=== PATIENT | female | born 1960 | race Caucasian/White ===

== ENCOUNTER → 2023-07-21 14:08 | Outpatient (CLI) | payer BC, SELFPAY ==
--- NOTE | ~2023-07-21 | US_ITS ---
EXAMINATION: US thyroid DATE: 07/21/2023 14:25 INDICATION: Nontoxic multinodular goiter. TECHNIQUE: Multiple ultrasound images of the thyroid were obtained. COMPARISON: None. FINDINGS: The right thyroid lobe measures 3.7 x 1.6 x 1.4 cm. The left thyroid lobe measures 3.3 x 1.0 x 1.0 c m. In the left thyroid lobe, there is a 10 mm, solid, isoechoic, wider than tall nodule with ill-def ined margin without echogenic foci (TI-RADS TR3). IMPRESSION: 1. Small thyroid nodule, likely not clinically significant. No follow-up is needed. Reviewed, dictated and finalized at location E. IMPRESSION: 1. Small thyroid nodule, likely not clinically significant. No follow-up is nee ded.
== END ==
PROVIDERS: PCP Physician Assistant Medical; Visit Provider Physician Assistant Medical
DX: E04.2 Nontoxic multinodular goiter (principal); E03.9 Hypothyroidism, unspecified
CPT/HCPCS: 76536

== ENCOUNTER 2024-02-06 08:17 | Outpatient (CLI) | payer BC, SELFPAY ==
--- NOTE | ~2024-02-06 | MR_ITS ---
MRI of the lumbar spine Clinical History: Pain Technique: Axial T2-weighted images, and sagittal T1-weighted, T2-weighted, and T2 fat-sat images wer e acquired. Findings: There is no fracture or subluxation of the lumbar spine. Vertebral bodies maintain normal h eight and alignment. Several scattered Schmorl's nodes are present, small in size. No suspicious bone marrow signal abnormality seen. At L1-L2, there is moderate degenerative disc narrowing. There is minimal disc bulge and mild facet a rthropathy. No central canal stenosis or neural foraminal narrowing. At L2-L3, there is central disc protrusion with underlying mild disc bulge. There is mild facet arthr opathy. No central canal stenosis or neural foraminal narrowing. At L3-L4, there is minimal disc bulge with mild facet arthropathy. No central canal stenosis. There i s mild bilateral neural foraminal narrowing. At L4-L5, there is minimal disc bulge and moderate facet arthropathy. No central canal stenosis. Ther e is moderate bilateral neural foraminal narrowing, left worse than right. At L5-S1, there is minimal disc bulge and advanced facet arthropathy. No central canal stenosis. Ther e is moderate to severe left neural foraminal narrowing, and moderate right neural foraminal narrowin g. Paravertebral soft tissues are unremarkable. Impression: [id number] degenerative spondylosis, as above. Reviewed, dictated and finalized at [facility]. Impression: [id number] degenerative spondylosis, as above.
--- NOTE | ~2024-02-06 | MR_ITS ---
EXAMINATION: MR hip LT wo con DATE: 02/06/2024 11:04 INDICATION: Left hip pain TECHNIQUE: Magnetic resonance imaging (MRI) of the left hip was performed without intravenous contra st. Sequences included full-field axial PD-weighted FS FSE and T1-weighted FSE, coronal of the pelvis with PD-weighted FS FSE, T2-weighted FSE and T1-weighted FSE, small field of view of the left hip w ith axial PD-weighted FS FSE, sagittal PD-weighted FS FSE, coronal PD-weighted FS FSE and coronal T2 weighted FSE. Additional radial T1-weighted FGR oriented orthogonal to the acetabular rim were obtai víctor for evaluation of the labrum. COMPARISON: Left hip radiographs dated 01/14/2024 FINDINGS: Bones/labrum/cartilage: Alignment is normal. No fracture, avascular necrosis or pathologic marrow replacing process. Small T 1 hyperintense hemangioma at L5. Mild nonuniform joint space narrowing at the left hip with mild part ial-thickness cartilage loss without evident chondral surface regularity and without degenerative sub chondral changes. There is focal amorphous mild increased signal at the chondral labral interface at the 12:00 position of the superolateral left acetabular labrum where there is a moderate size margina l osteophyte better appreciated on the prior radiographs. Fluid: Symmetric physiologic amount of fluid within both hip joints. Soft tissues: Normal and symmetric muscle bulk and signal in the pelvis and visualized proximal thighs. The iliopso as, gluteal and proximal hamstring tendons are normal. There are multiple diverticula along the sigmo id and visualized distal descending colon without adjacent inflammatory stranding to suggest divertic ulitis. Normal appendix. Bladder and anteverted uterus are unremarkable. 7 mm T2 hyperintense nabothi an cyst at the cervix. No pathologically enlarged pelvic/inguinal lymphadenopathy. IMPRESSION: 1. Mild left hip osteoarthritis with osteophyte formation and focal mild labral degeneration at the s uperolateral left acetabular labrum. Reviewed, dictated and finalized at location B. IMPRESSION: 1. Mild left hip osteoarthritis with osteophyte formation and focal mild labral degeneration at the superolateral left acetabular labrum.
== END 2024-02-06 08:18 ==
LOC: MICIMG 08:17
PROVIDERS: PCP Physician Assistant Medical; Visit Provider Physician Assistant Medical
DX: M16.12 Unilateral primary osteoarthritis, left hip (principal); M25.752 Osteophyte, left hip; M43.06 Spondylolysis, lumbar region
CPT/HCPCS: 72148; 73721